=== PATIENT | female | born 1990 | race Caucasian/White ===

== ENCOUNTER 2020-12-19 09:49 | Emergency (ER) | payer BC, SELFPAY ==
[2020-12-19 09:51] VITALS: BP 142/84; PULSE 84; RESP 16; TEMP 36.8; O2SAT 98; BMI 26.0
--- NOTE | 2020-12-19 10:32 | XR_ITS ---
PROCEDURE: XR SOFT TISSUE NECK CLINICAL INDICATION: feels like something is stuck in her throat COMPARISON: No exams were available for comparison FINDINGS: The epiglottis has an unremarkable appearance. No obvious radiopaque foreign body. No soft tissue gas or subglottic narrowing IMPRESSION: Negative soft tissues neck Dictated by: Steven Caballero MD 12/19/2020 10:59 Steven Caballero MD in [place] 12/19/2020 10:59
--- NOTE | 2020-12-19 11:20 | HMH.EDGENADL ---
ED Disposition Clinical Impression: Pain on swallowing Disposition: Home, Self-Care Condition on Discharge: Good Referrals: Provider,Sonam, [Primary Care Provider] - Kishore Maza MD [Staff Physician] - 12/22/20 (Call for follow-up appointment) Time of Disposition: 12:04 - Critical Care Critical Care Time: No Attestation: On 12/19/20, the high probability of a clinically significant, sudden or life threatening deterioration of the following system(s) required my full and direct attention, intervention and personal management. The time I documented below is in addition to time spent performing reported procedures but includes the following listed in this critical care notation. Medical Decision Making - Medical Records Medical records reviewed: Yes: I reviewed the patient's medical records. - [place] Inquiry Pt receiving controlled substance: No Vital Signs: 12/19/20 09:51 12/19/20 11:34 Temperature 98.2 F 98.0 F Temperature Source Oral Oral Pulse Rate [Right] 84 73 Respiratory Rate 16 16 Blood Pressure [Right Arm] 142/84 H 114/83 Blood Pressure Mean [Right Arm] 103 93 Blood Pressure Source [Right Arm] Automatic Cuff Blood Pressure Position [Right Arm] Sitting 02 Sat by Pulse Oximetry 98 100 Oxygen Delivery Method Room Air Room Air Medical Decision Narrative: 30yo F evaluated for pain with swallowing. Patient no acute distress on initial evaluation. Her physical exam is benign. [facility] ordered neck x-rays that are benign. Attempted to contact Dr. Maza office, they are closed. Attempted to consult Dr. Maza, however he is on vacation. Discussed typical management with the patient. Counseled her on soft foods, small bites, thoroughly chewing, frequent drinks. Patient voiced understanding. We will provide the phone number for Dr. Maza clinic so she may call on Tuesday and schedule follow-up appointment. Patient voiced understanding and agreement the plan. Also counseled the patient that should she develop a large food bolus, she is to report to an emergency department immediately as that would require intervention. Patient voiced understanding. General Adult HPI - General Stated complaint: trouble swallowing Time Seen by Provider: 12/19/20 11:20 Mode of Arrival: Ambulatory Source of Information: Patient Limitations: No Limitations Description of Symptoms (Recalled from ER Triage Doc. by RN): pt c/o feeling like there is something stuck in her esophagus. this has been ongoing x1 week. she has never encountered this before. pt is still able to eat and drink, however, eating is painful. - History of Present Illness HPI narrative: 30yo F evaluated for pain with swallowing x1 week. Patient reports she was any a lot of chicken approximately 1 week ago when she fell like food got stuck. She was able to clear it. She states she has had pain with swallowing solids. She states symptoms are improved with thoroughly chewing and taking smaller bites. She reports tolerating liquids without difficulty. She denies any history of lodged food bolus/impacted food bolus. She denies any vomiting. She denies history of prior surgery, EGD. Patient takes no medication. - Related Data Allergies Allergy/AdvReac Type Severity Reaction Status Date / Time No Known Allergies Allergy Verified 12/19/20 10:07 [facility] History - Hepatitis A Screen Drug use history?: No High risk sexual behaviors?: No History of sexually transmitted infection?: No Currently employed?: No Childcare worker?: No Do you have indoor plumbing?: Yes Do you have electricity?: Yes Attestation statement:: This patient has been screened for Hepatitis A risk factors. I have reviewed the patient's past medical history: Yes Other Surgeries: Yes: No Previous Surgery - Social History Smoking Status: Never smoker Family Hx:: No significant family history ROS Obtained: Yes All systems reviewed & no additional complaints - Gas
[2020-12-19 11:34] VITALS: BP 114/83; PULSE 73; RESP 16; TEMP 36.7; O2SAT 100; BMI 26.0
[2020-12-19 12:15] VITALS: BP 119/71; PULSE 87; RESP 16; TEMP 36.8; O2SAT 100
== END 2020-12-19 12:15 | disposition home or self-care (01) ==
LOC: UTC 09:54 → ER 11:16
PROVIDERS: Emergency Provider Nurse Practitioner Family
DX: R13.10 Dysphagia, unspecified (principal)
CPT/HCPCS: 70360; 99282

== ENCOUNTER → 2020-12-24 15:17 | Outpatient (CLI) | payer BC, SELFPAY ==
[2020-12-24 15:36] LABS: Urine Pregnancy, HCG Qual. Negative (Negative)
== END ==
PROVIDERS: Visit Provider Internal Medicine Gastroenterology
DX: Z01.812 Encounter for preprocedural laboratory examination (principal); Z20.822 Contact with and (suspected) exposure to COVID-19; R13.10 Dysphagia, unspecified
CPT/HCPCS: 81025; U0003

== ENCOUNTER 2020-12-26 08:26 | Day surgery (SDC) | payer BC, SELFPAY ==
[2020-12-24 14:34] VITALS: BMI 26.2
[2020-12-26] VITALS (7 sets, daily range): BP systolic 93–136; BP diastolic 60–78; PULSE 65–89; RESP 18–20; TEMP 36.2–36.6; O2SAT 96–100
--- NOTE | 2020-12-26 08:57 | HMH.ANESCL ---
[facility] Anesthesia Checklist - Patient Identification Patient Identification: Arm Band - Structural Data Admitted From: Home Planned Operative Procedure/s: egd Consent for Planned Operative Procedure(s) Verified: Yes Verified Documents: Surgical Consent, History and Physical - NPO Status Verified Time NPO: 00:00 - Additional verifications Anesthesia Reactions: No - Airway Assessment C-Spine Mobility Assessed: Yes (mp2) TMJ Mobility Assessed: Yes Dentition: Good Dentition - Neurological Assessment Level of Consciousness: Awake, Alert - Anesthesia Plan Anesthesia Risk discussed: Yes Anesthesia Plan: Verified ASA Class: I Anesthesia Type: MAC [facility] History I have reviewed the patient's past medical history: Yes Medical History: Denies:: Cancer, Diabetes Mellitus Type 1, Diabetes Mellitus Type 2, Internal Pacemaker, MRSA, Seizures *Have you ever received a pneumonia vaccine?: No *Have you received a flu vaccine this season?: No Anesthesia experience/problems:: nac Laterality Cases: Bilateral: Myringotomy (Ear Tubes) Other Surgeries: Yes: Dilation and Curettage. No: Pacemaker Amputation: No Fractures: No - *Social History Last grade of school completed: Some college Smoking Status: Never smoker Alcohol Intake: never Substance Use Type: denies use *Occupational Status:: unemployed Housing: house Household Members: spouse, family, children *Travel in the last 8 weeks: None Family Hx:: No significant family history
--- NOTE | 2020-12-26 09:17 | HMH.PROC ---
[facility] Procedure Note Procedure Note:: Upper Endoscopy Procedure Report: Esophagogastroduodenoscopy with cold biopsies and TTS balloon dilation Endoscopost: Kishore Maza II, MD Referring Physician: None Date of Procedure: December 26, 2020 Equipment: Olympus GIF 190 standard upper endoscope Sedation: MAC sedation Indications: Mrs. Srinivasan is a 30-year-old female with dysphagia and some globus sensation. She has had moderate belching and increased heartburn and reflux that started in the last couple of weeks. She reports bloating and some epigastric abdominal discomfort with dyspepsia. She has had more constipation recently. Some of her symptoms have improved. Some of her swallowing is painful with some midsternal chest discomfort. The patient was placed on omeprazole and Metamucil. She is better. Procedure: Prior to the procedure, a history and physical exam was performed, and patient's medications and allergies were reviewed. The risks, benefits and alternatives of the sedation and procedure were discussed with the patient. All questions were answered and informed consent was obtained. The patient was brought to the procedure room. Patient identification and proposed procedure were verified by the physician and the nurse. The patient was placed in a left lateral decubitus position and the scope was passed under direct vision. Throughout the procedure, the patient's blood pressure, pulse, and oxygen saturations were monitored continuously. The upper GI endoscopy was accomplished without difficulty. The patient tolerated the procedure well. Findings: The scope was passed directly into the upper esophagus and advanced to the third portion of the duodenum. The post bulbar duodenum and duodenal bulb were normal with normal mucosa and conniventes. The scope was withdrawn through a normal duodenal bulb and pylorus into the stomach. There was mild linear reactive gastropathy of the antrum and body of the stomach. The remainder of the fundus of the stomach was grossly normal. Upon retroflexion there was no hiatal hernia. 2 biopsies were taken in the antrum and along the lesser curvature for histology to rule out gastritis and/or H pylori. The scope was then withdrawn into the esophagus. There was a serrated Z-line. Biopsies were taken at the GE junction. There were strong tertiary contractions and evidence of moderate esophageal dysmotility. The entire esophagus was dilated to 60 [place]/20 mm with a TTS hydrostatic balloon. There was some resistance at the cricopharyngeus. The remainder of the esophageal mucosa was normal. Impression: 1. Cricopharyngeal spasm status post dilation to 20 mm 2. Nonerosive GERD with moderate esophageal dysmotility 3. Linear reactive gastropathy Plan: I will follow-up the biopsies. I will discuss the findings and further treatment options with the patient and family. The patient does have functional GERD with esophageal dyskinesia/esophageal spasm.
== END 2020-12-26 10:08 | disposition home or self-care (01) ==
LOC: OUTP 08:27
PROVIDERS: Visit Provider Internal Medicine Gastroenterology
PROC: 0DJ08ZZ Inspection of Upper Intestinal Tract, Via Natural or Artificial Opening Endoscopic (ICD-10-PCS; CPT 43235; principal; 2020-12-26 09:30)
DX: J39.2 Other diseases of pharynx (principal); K21.9 Gastro-esophageal reflux disease without esophagitis; K22.4 Dyskinesia of esophagus; K31.9 Disease of stomach and duodenum, unspecified
CPT/HCPCS: 43239; 43249; C1726

== ENCOUNTER 2022-08-30 10:46 | Emergency (ER) | payer BC, SELFPAY ==
[2022-08-30 11:30] VITALS: BP 114/76; PULSE 109; RESP 20; TEMP 37.1; O2SAT 97; BMI 27.3
[2022-08-30 11:40] LABS: UTC Strep Screen (Rapid) Positive (Negative)
--- NOTE | 2022-08-30 12:04 | EXP.UTC ---
Discharge Plan Disposition Patient Disposition: Home, Self-Care Condition: Good Prescriptions Prescriptions: New penicillin V potassium 500 mg tablet 500 mg PO BID Qty: 20 0RF Referrals Follow up/Referrals: Provider,Referral, MD [Primary Care Provider] - See instructions Activity Restrictions/Add. Instructions Additional Instructions/Restrictions: *Monitor Temp, Over the counter Motrin or Tylenol as directed/as needed Tylenol every 4 hours and Motrin every 6 hours (as long as your family doctor has told you that you can take it) for fever or pain. and straight to ER if unable to lower temp less than 101.0 after medication given *Warm salt water gargles may help to soothe the throat *Throat Lozenges? *Warm fluids like tea with honey may help to soothe the throat? *Sleep elevated *Humidifier/Vaporizer *If you did not take Penicillin shot or was unable to, start taking antibiotic immediately and make sure that you take it for the FULL length of time although you should start to feel better in 24-48 hours *change toothbrush and toothpaste 24-48 hours after starting to take antibiotics so you do not reinfect yourself Monitor Temp. Tylenol and/or Ibuprofen as needed. ER if fever is no less than 101 despite alternating Tylenol and Ibuprofen * Encourage fluids, water, Gatorade, powerade, pedialyte if infant/toddler/or child *Cold fluids, popsicles and ice cream may feel good on his throat Follow up IMMEDIATELY for new or worsening symptoms or no Noticeable improvement over the next 48-72 hours. 911 for difficulty breathing or swallowing Clinical Impressions Clinical Impression: Strep throat Stand Alone Forms Stand Alone Forms: Work/School Release Instructions Patient Instructions: DI for Strep Throat, Strep Throat Discharge ED Provider: Eden Stephenson [facility] [place] HPI General Stated complaint: Bodyache,sore throat,headache Mode of Arrival: Ambulatory Source of Information: Patient Limitations: No Limitations Time Seen by Provider: 08/30/22 12:04 Description of Symptoms (Recalled from Triage Doc. by RN): bosy aches, [place], and sore throat HEENT Symptoms (Recalled from RN notes): Yes Resp Symptoms (Recalled from RN notes): No Skin Symptoms (Recalled from RN notes): No MS Symptoms (Recalled from RN notes): No Functional Status (Recalled from RN notes): n/a History of Present Illness Provider Complaint: Patient states that she has been having sore throat, headache and upset stomach States that her son has strep throat and she is concerned that she may have it now too Related Data Previous Rx's Medication Instructions Recorded penicillin V potassium 500 mg 500 mg PO BID #20 tabs 08/30/22 tablet Allergies Allergy/AdvReac Type Severity Reaction Status Date / Time No Known Allergies Allergy Verified 08/30/22 11:40 Worker's Comp Is this a Worker's Comp case?: No PFSH PFS Disclaimer: The information contained in this section may have been updated after the patient was seen, as this information can be updated by other users. Social History Smoking Status: Never smoker alcohol intake: never substance use type: denies use current occupational status: unemployed Travel in the last 8 weeks: None household members: spouse, family and children housing: house current occupational exposures/hazards: No caffeine: Yes ROS Obtained: Yes All systems reviewed & no additional complaints except as documented and Yes Systems reviewed as appropriate & no additional complaints except as documented Constitutional Constitutional: Reports system reviewed and no additional complaints, except as documented, Reports as per HPI and Reports headache(s) ENT Ears, Nose, Mouth, and Throat: Reports system reviewed and no additional complaints, except as documented, Reports as per HPI, Reports headache(s) and Reports sore throat Cardiovascular
[2022-08-30 12:10] VITALS: BP 114/76; PULSE 109; RESP 20; TEMP 37.1; O2SAT 97
== END 2022-08-30 12:10 | disposition home or self-care (01) ==
PROVIDERS: Emergency Provider Nurse Practitioner
DX: J02.0 Streptococcal pharyngitis (principal)
CPT/HCPCS: 87880; 99212; 99213; G0463

== ENCOUNTER → 2023-01-14 08:11 | Outpatient (CLI) | payer BC, SELFPAY ==
--- NOTE | 2023-01-14 08:17 | XR_ITS ---
FINAL REPORT CLINICAL HISTORY: RIGHT KNEE PAIN, NO INJURY FINDINGS: RIGHT KNEE: 4 views of the right knee obtained. There is no acute fracture or dislocation. The joint spaces are intact. There is no soft tissue abnormality. IMPRESSION: No acute fracture Reviewed, Interpreted and Dictated by Josefina Tucker MD Transcribed by Stephan Celis Authenticated and . [facility]
--- NOTE | 2023-01-14 08:26 | XR_ITS ---
FINAL REPORT CLINICAL HISTORY: new patient referral bilateral foot pain FINDINGS: AP, oblique and lateral views of the left foot were obtained. There is no prior exam for comparison. There is no acute fracture or dislocation. The joint spaces are preserved. Soft tissues are normal. IMPRESSION: No acute osseous abnormality of the left foot. Reviewed, Interpreted and Dictated by Josefina Tucker MD Transcribed by Sammi Aguilar Authenticated and [facility]
--- NOTE | 2023-01-14 08:26 | XR_ITS ---
FINAL REPORT CLINICAL HISTORY: new patient referral, BILATERAL FOOT PAIN FINDINGS: AP, oblique and lateral views of the right foot were obtained. There is no prior exam for comparison. There is no acute fracture or dislocation. The joint spaces are preserved. Soft tissues are normal. IMPRESSION: No acute osseous abnormality of the right foot. Reviewed, Interpreted and Dictated by Josefina Tucker MD Transcribed by Sammi Aguilar Authenticated and [facility]
== END ==
PROVIDERS: PCP Family Medicine; Visit Provider Podiatrist
DX: M79.671 Pain in right foot (principal); M79.672 Pain in left foot; M25.561 Pain in right knee
CPT/HCPCS: 73564; 73630

== ENCOUNTER 2023-03-16 10:25 | Emergency (ER) | payer BC, SELFPAY ==
--- NOTE | 2023-03-16 10:38 | XR_ITS ---
FINAL REPORT CLINICAL HISTORY: FELL OFF OF LADDER A MONTH AGO, rt leg pain FINDINGS: Right tibia fibula Two views were obtained. There is no acute fracture or dislocation. The joint spaces appear normal. No soft tissue abnormality is identified. IMPRESSION: No acute process. Reviewed, Interpreted and Dictated by Elan Harden MD Transcribed by Sammi Aguilar Authenticated and [facility][1]
[2023-03-16 10:40] VITALS: BP 137/73; PULSE 71; RESP 19; TEMP 36.7; O2SAT 98; BMI 27.1
--- NOTE | 2023-03-16 10:53 | EXP.UTC ---
Discharge Plan Disposition Patient Disposition: Home, Self-Care Condition: Good Referrals Follow up/Referrals: Kiara Osborne [Primary Care Provider] - See instructions Activity Restrictions/Add. Instructions Additional Instructions/Restrictions: A hematoma that forms under the skin will feel like a bump or hard mass. Hematomas can happen anywhere in your body Gradually the blood in the hematoma is absorbed back into the body. The swelling and pain of the hematoma will go away. This takes from?1 to 4 weeks, depending on the size of the hematoma. RICE method- rest, ice, compression, elevation) is recommended. Apply ice to the area for 15 minutes, several times per day. *Haider wrap is for support and help control swelling, use it except in the shower. Be sure that is not to tight but not to loose either *Elevate when resting? *Ibuprofen 600-800mg every 6-8 hours as needed for pain an inflammation. If need something more can take Tylenol in between doses of Ibuprofen to help Immediately follow up with your family doctor for new or worsening of symptoms, or no noticeable improvement over the next 3-5 days Clinical Impressions Clinical Impression: Hematoma Instructions Patient Instructions: DI for Hematoma (Bruise), How To Perform RICE (Rest, Ice, Compress, Elevate) Discharge ED Provider: Eden Stephenson [facility] General Stated complaint: [id number] right leg pain,home accident Mode of Arrival: Ambulatory Source of Information: Patient Limitations: No Limitations Time Seen by Provider: 03/16/23 10:53 Description of Symptoms (Recalled from Triage Doc. by RN): lower leg pain its right. She Fell off a ladder a month a ago. HEENT Symptoms (Recalled from RN notes): No Resp Symptoms (Recalled from RN notes): No Skin Symptoms (Recalled from RN notes): No MS Symptoms (Recalled from RN notes): Yes Functional Status (Recalled from RN notes): n/a History of Present Illness Provider Complaint: Patient states that she slipped off ladder about a month ago and she has been having pain and swelling in her right lower leg since States that she thought it would have been better by now but still having some tenderness on the side of her leg Related Data Allergies Allergy/AdvReac Type Severity Reaction Status Date / Time No Known Allergies Allergy Verified 03/16/23 10:47 Worker's Comp Is this a Worker's Comp case?: No PFSH PFSH Disclaimer: The information contained in this section may have been updated after the patient was seen, as this information can be updated by other users. Surgical History [place] teeth removed Social History Smoking Status: Never smoker alcohol intake: never substance use type: denies use current occupational status: unemployed Travel in the last 8 weeks: None household members: spouse, family and children housing: house current occupational exposures/hazards: No caffeine: Yes ROS Obtained: Yes All systems reviewed & no additional complaints except as documented and Yes Systems reviewed as appropriate & no additional complaints except as documented Constitutional Constitutional: Reports system reviewed and no additional complaints, except as documented and Reports as per HPI ENT Ears, Nose, Mouth, and Throat: Reports system reviewed and no additional complaints, except as documented and Reports as per HPI Cardiovascular Cardiovascular: Reports system reviewed and no additional complaints, except as documented and Reports as per HPI Respiratory Respiratory: Reports system reviewed and no additional complaints, except as documented and Reports as per HPI Gastrointestinal Gastrointestingal: Reports system reviewed and no additional complaints, except as documented and as per HPI Musculoskeletal Musculoskeletal: Reports system reviewed and no additional complaints, except as documented a
[2023-03-16 11:20] VITALS: BP 137/73; PULSE 71; RESP 18; TEMP 36.7; O2SAT 98
== END 2023-03-16 11:19 | disposition home or self-care (01) ==
PROVIDERS: Emergency Provider Nurse Practitioner; PCP Family Medicine
DX: M79.661 Pain in right lower leg (principal); S80.11XA Contusion of right lower leg, initial encounter; W11.XXXA Fall on and from ladder, initial encounter
CPT/HCPCS: 73590; 99212; 99214; G0463

== ENCOUNTER 2023-07-08 19:38 | Outpatient (CLI) | payer BC, SELFPAY | END 2023-07-08 23:59 | LOC: LAB.DROPOF 19:42 | PROVIDERS: PCP Student in an Organized Health Care Education/Training Program; Visit Provider Student in an Organized Health Care Education/Training Program | DX: R35.0 Frequency of micturition (principal); B96.29 Other Escherichia coli [E. coli] as the cause of diseases classified elsewhere | CPT/HCPCS: 87086 ==

== ENCOUNTER 2023-07-22 20:43 | Outpatient (CLI) | payer BC, SELFPAY | END 2023-07-22 23:59 | LOC: LAB.DROPOF 20:43 | PROVIDERS: PCP Student in an Organized Health Care Education/Training Program; Visit Provider Student in an Organized Health Care Education/Training Program | DX: N39.0 Urinary tract infection, site not specified (principal); B96.89 Other specified bacterial agents as the cause of diseases classified elsewhere | CPT/HCPCS: 87086 ==

== ENCOUNTER 2024-10-14 13:51 | Outpatient (CLI) | payer BC, SELFPAY ==
--- OUTSIDE RECORDS SUMMARY | 2024-10-15 10:54 | XMS_ITS | Data Portability ---
Author Organization [facility] AIDA Owens [place] CLOSED Address [address] [place] [address] Assessment No assessment recorded. Plan of Treatment Reminders Order Date Submit Date Provider Last Modified By Organization Details Last Modified Time Details Appointments DERMATOLO GY VISIT 2024 09:15A M ROME JOSEPH PA-C Not available Not available Not available Lab surgical pathology study 2021 022 [facility], [facility] [place], [address], 03/15/2022 13:06:32 Referral None recorded. Procedures None recorded. Surgeries None recorded. Imaging None recorded. Medication Orders None recorded. Patient TargetsNo targets recorded. Patient Instructions Encounter Date Encounter Id Patient Instructions Last Modified By Organization Details Last Modified Time 03/12/2022 [id number] Risks/Benefits/O p tions/Side Effects of diagnosis and treatment discussed. UV protection and signs of skin cancer discussed [email or web address] Not available 03/12/2022 08:39:41 Reason for Referral None Reported. Results Created Date Observation Date Name Description Value Unit Range Abnormal Flag Note LastModifiedBy Organization Detail LastModifiedTime 03/12/20 22 03/12/2022 SURGI MANISHA surgical SEE BELOW Depar tment of Patho logy Surgi manisha Patho logy Repor t NAME: MICHELE DIALLOA PATH. :SC-2 50 Copy to: Diagn osis: A) Left templ e: [place] und nevus , morgan bryant rn. B) Infer ior chin: Intra derma l nevus . SOURC E OF SPECI MEN: SKIN BIOPS Y, LEFT TEMPL E SKIN BIOPS Y, INFER IOR CHIN CLINI MANISHA INFOR MATIO N: D48.5 A-B) R/O IRRIT ATED NEVUS Gross Descr iptio n: A) Recei hadley in forma josiah label ed with the patie nt's name and desig nated as left templ e is a shave biops y of skin (0.6 x 0.6 x 0.1 cm). The epide rmal surfa ce is gee, rough ened and raise d. The ugo n is inked blue. The speci men is trise cted and entir fede submi tted in one casse tte. B) Recei hadley in forma josiah label ed with the patie nt's name and desig nated as infe rior chin is a shave biops y of skin (0.6 x 0.3 x 0.1 cm). The epide rmal surfa ce is gee and rough ened. The ugo n is inked blue. The speci men is bisec diana and entir fede submi tted in two block s. [place] 03/12 04:18 PM Micro scopi c Descr iptio n: A) Secti ons demon strat e a compo und melan ocyti c nevus with conge nital featu res consi sting of bland appea ring nevus cells with peria dnexa l and periv ascul ar distr ibuti on. With incre asing depth the nevus cells adopt a singl e-amberly l array with splay ing of cells betwe en derma l colla gen bundl es. 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 Tyndall l nevom elano cytes show appro priat e matur ation with progr essiv e derma l desce nt. TODD GUTIERREZ M.D. Vivi d Out Date: 03/15 13:05 Page 1 of 1 Not Available [facility] [address] [place] [address], [place], [address], 03/15/2022 13:06:32 Result Notes None recorded. Procedures Surgical History Date Name Laterality Status Provider Name and Address Organization Details Recorded Time 2 Biopsy Skin Lesion; Tangential completed Latonya Valiente [facility] 03/12/2022 09:01:06 Imaging Results None recorded. Procedure Notes None recorded. Medical Equipment None Reported. Allergies No known drug allergies Medications Name Sig Start Date Stop Date Status Note LastModified by Organization Details LastModified Time Ortho Tri-Cycl en LO (28) 0.18 mg/0.215 mg/0.25 mg-25 mcg tablet 2021 completed Medication Description : ethinyl estradiol-n orgestimate ; Route:oral; refills:0 Not Available Not Available Not Available Vitals None Recorded Social History None recorded. Functional Status None recorded. Mental Status None recorded. Family History Nothing Reported. Medical History No medical history recorded. Gynecological HistoryNo gynecological history recorded. Obstetrics History GPAL:G 0 P 0 0 0 0 Past Encounters Encounter ID Performer Location Encounter Start Date Encounter Closed Date Diagnosis/Indication Diagnosis SNOMED-CT Code Diagnosis ICD10 Code Diagnosis Note [id number] ROME JOSEPH PA-C [facility] [address] [place] [address] 03/12/2022 08:28:54 03/12/2022 09:28:17 Neoplasm of uncertain behavior of skin 76790039 D48.5 DISCUSSED RISKS OF SCARRING, RECURRENCE , ETC WITH REMOVAL. PT UNDERSTOOD AND WISHED TO PROCEED. A)LEFT TEMPLER/O IRRITATED NEVUS B)INFERIOR CHINR/O IRRITATED NEVUS SHAVE BIOPSYSEE PROCEDURE NOTEWOUND CARE INSTRUCTIO NS PROVIDEDF/ U PER PATH Multiple b enign melanocytic nevi 795988432 D22.9 BENIGN APPEARANCE ; PT REASSURED; MONITOR FOR CHANGESREC OMMENDED SUN PROTECTIVE CLOTHING/H ATS AND OTC SPF 30+ EQUATE SPORT OR BLUE LIZARD SUNSCREEN DAILY Health Concerns Section Related Observation LastModified by Organization Detai ls LastModified Time None Recorded Concern Status LastModified by Organization Details LastModified Time None Recorded Advance Directives Directive None Recorded Payers Encounter Date Sequence Insurance Name Policy Number Policy Alvarez Covered Member ID Alvarez Member ID Guarantor Name 03/12/2022 1 [place] [id number] Fredi Srinivasan [id number] Lauren Srinivasan Notes Date Note Type Note Provider Name and Address Organization Details Recorded Time 03/12/2022 text/html NEW PATIENT - SA W DR. DICKSON IN 2011 1) PT C/O MOLES ON LEFT CHRISTIANITY, CHIN, AND MID CHEST X MANY YEARS (-)ITCH/BLEED/ANGEL N. SHE STATES SHE HAS HAD MOLES REMOVED IN THE PAST AND IS REQUESTING REMOVAL TODAY OF A FEW THAT ARE ENLARGING. NO TX. NO HX OF DN. PT DECLINED WAIST UP EXAM OR FSE no issues with bleeding, scarring, or healing Denies any other new, changing, or bleeding lesions, or other rashes, feels well, in a good mood, and has no family history of melanoma. ROME JOSEPH PA-C [facility] [place], [address], [facility] 03/12/2022 13:09:35 OBGyn Episode No OBEpisode recorded.
== END 2024-10-14 23:59 | disposition home or self-care (01) ==
LOC: LAB.DROPOF 10-15 10:54
PROVIDERS: PCP Student in an Organized Health Care Education/Training Program; Visit Provider Student in an Organized Health Care Education/Training Program
DX: N39.0 Urinary tract infection, site not specified (principal); B96.20 Unspecified Escherichia coli [E. coli] as the cause of diseases classified elsewhere
CPT/HCPCS: 87086; 87088; 87186